=== PATIENT | female | born 1950 | race Caucasian/White ===

== ENCOUNTER 2020-01-29 14:04 | Outpatient (CLI) | payer OTHER, SELFPAY ==
--- NOTE | 2020-01-29 13:45 | DI.RAD_ITS ---
EXAM: XR KNEE LT 3V AP,LAT,NOLBERTO CLINICAL HISTORY: KNEE PAIN TECHNIQUE: COMPARISON: No exams were available for comparison FINDINGS: Three views were obtained. There may be a small knee joint effusion. There is marked narrowing of t he medial tibiofemoral cartilaginous joint space with associated mild subchondral sclerosis and hermilo nal osteophyte formation. Minimal marginal osteophytes noted at patellofemoral and lateral tibiofemo ral joints as well. 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
--- NOTE | 2020-01-29 14:15 | DI.RAD_ITS ---
EXAM: XR STANDING ALIGNMENT CLINICAL HISTORY: knee pain TECHNIQUE: COMPARISON: No exams were available for comparison FINDINGS: Standing alignment views were obtained. Minimal degenerative changes of both hips and SI joints note d. 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 IMPRESSION:
== END 2020-01-29 14:24 ==
PROVIDERS: Referring Provider Chiropractor Orthopedic; Visit Provider Student in an Organized Health Care Education/Training Program
DX: M25.562 Pain in left knee (principal); M17.12 Unilateral primary osteoarthritis, left knee; M25.462 Effusion, left knee; M16.0 Bilateral primary osteoarthritis of hip; M53.3 Sacrococcygeal disorders, not elsewhere classified
CPT/HCPCS: 73562; 99204; 77073

== ENCOUNTER → 2020-02-14 11:01 | Outpatient (BNVA) | payer OTHER, SELFPAY | PROVIDERS: PCP Internal Medicine; Visit Provider Student in an Organized Health Care Education/Training Program | DX: M17.12 Unilateral primary osteoarthritis, left knee (principal) | CPT/HCPCS: 99214 ==

== ENCOUNTER → 2020-05-22 10:29 | Outpatient (BNVA) | payer OTHER, SELFPAY | PROVIDERS: PCP Internal Medicine; Referring Provider Internal Medicine; Visit Provider Student in an Organized Health Care Education/Training Program | DX: M17.12 Unilateral primary osteoarthritis, left knee (principal); I10 Essential (primary) hypertension | CPT/HCPCS: 99214 ==